=== PATIENT | male | born 1955 | race Caucasian/White ===

== ENCOUNTER 2020-10-21 11:07 | Emergency (ER) | payer OTHER ==
[~2020-10-21] VITALS: Ht 172.7 cm; Wt 65.3 kg
[2020-10-21 11:11] VITALS: BP 210/127
--- NOTE | 2020-10-21 11:40 | NUR ---
PATIENT PRESENTS TO ED WITH RESULT OF HIGH POTASSIUM LEVEL OF 6.2 . PT STATES FEELING TENSE . DENIES N/V/D; SKIN IS PINK/WARM/DRY; AAOX4 WITH EVEN AND STEADY GAIT; LUNGS CLEAR BL; HR EVEN AND REGULAR; PT DENIES ANY FEVER, CP, SOB, OR COUGH AT THIS TIME; PATIENT STATES PAIN OF 0/10 AT THIS TIME; VSS; PATIENT POSITIONED FOR COMFORT; HOB ELEVATED; BEDRAILS UP X2; BED DOWN. ER MD MADE AWARE OF PT STATUS. PMH: HTN, DM RX HYDROCHLOROTHIAZIDE, ATORVASTATIN, ATENOLOL, ASA, VASOTECH NKA
--- NOTE | 2020-10-21 11:49 | NUR ---
DR SR AT BEDSIDE EXAMINING PATIENT
[2020-10-21 11:58] LABS: ANION GAP 9.6 (8-16); CARBON DIOXIDE 27.4 mmol/L (21-32); CREATININE 0.9 mg/dL (0.6-1.3)
[2020-10-21] MEDS ORDERED: NACL 0.9% 1,000 ML IV ONE (12:25)
[2020-10-21] MEDS ORDERED: SODIUM ZIRCONIUM CYCLOSILICATE 10 GM POWD.PACK PO ONE (12:25)
--- NOTE | 2020-10-21 12:40 | NUR ---
IV INSERTED, PT TOLERATED WELL, WILL CONTINUE TO MONITOR.
[2020-10-21 13:15] LABS: BASOPHILS # (AUTO) 0.1 K/uL (0.00-0.22); BASOPHILS % (AUTO) 1.3 % (0.0-2.0); EOSINOPHILS # (AUTO) 0.3 K/uL (0-0.4); EOSINOPHILS % (AUTO) 2.6 % (0.0-4.0); HEMATOCRIT 38.5 % (36-52); HEMOGLOBIN 13.1 g/dL (12.0-18.0); LYMPHOCYTES # (AUTO) 1.6 K/uL (2.0-11.5); LYMPHOCYTES % (AUTO) 15.8 % (20.5-51.1); MEAN CORPUSCULAR HEMOGLOBIN 30 pg (27-31); MEAN CORPUSCULAR HGB CONC 34 g/dL (33-37); MEAN CORPUSCULAR VOLUME 89.3 fL (80-94); MONOCYTES # (AUTO) 0.8 K/uL (0.8-1.0); MONOCYTES % (AUTO) 8.2 % (1.7-9.3); NEUTROPHILS # (AUTO) 7.2 K/uL (1.8-7.7); NEUTROPHILS % (AUTO) 72.1 % (42.2-75.2); PLATELET COUNT (AUTO) 354 K/uL (140-450); RED BLOOD CELL COUNT(AUTO) 4.31 MIL/uL (4.20-6.10); RED CELL DISTRIBUTION WIDTH 13.4 % (11.6-13.7)
[2020-10-21] MEDS ORDERED: HYDR12.51 PO (13:48)
[2020-10-21] MEDS ORDERED: ATOR40TA PO (13:48)
[2020-10-21] MEDS ORDERED: ATEN25TA7 PO (13:48)
[2020-10-21] MEDS ORDERED: ENAL5TAB48 PO (13:48)
[2020-10-21] MEDS ORDERED: ASPI-1822 PO (13:48)
--- NOTE | 2020-10-21 14:36 | NUR ---
PT EATING, TOLERATED WELL, WILL CONTINUE TO MONTIOR.
--- NOTE | 2020-10-21 17:12 | NUR ---
REPORT GIVEN TO [facility] SPOKE TO JOSE FRANKLIN @[phone].
--- NOTE | 2020-10-21 17:55 | NUR ---
[facility] AT BEDSIDE FOR TRANSFER OF PATIENT
[2020-10-21 18:00] VITALS: BP 185/65
--- NOTE | 2020-10-21 18:02 | NUR ---
PT PICKED UP BY [facility], TRANSFERRED TO [facility], PT AWAKE ALERT ABLE TO LET NEEDS KNOW, ON ROOM AIR, NO SOB NOTED, IV TO R HAND 20G INTACT. STABLE AT THIS MOMENT.
== END 2020-10-21 18:02 | disposition short-term general hospital (02) ==
LOC: MED 11:07
DX: E87.5 Hyperkalemia (principal); I11.9 Hypertensive heart disease without heart failure; E11.9 Type 2 diabetes mellitus without complications; Z79.899 Other long term (current) drug therapy; Z20.822 Contact with and (suspected) exposure to COVID-19
CPT/HCPCS: 36415; 80048; 84484; 85025; 87426; 93005; 96360; 99284; J7030

== ENCOUNTER 2020-11-03 14:27 | Emergency (ER) | payer OTHER ==
[~2020-11-03] VITALS: Ht 156.2 cm; Wt 57.3 kg
[~2020-11-03 14:27] MED LIST: ASPI-1822 PO; ATEN25TA7 PO; ATOR40TA PO; ENAL5TAB48 PO; HYDR12.51 PO
[2020-11-03 14:39] VITALS: BP 151/79
--- NOTE | 2020-11-03 14:43 | NUR ---
PT AMBULATED TO ER BED 9 WITH A STEADY GAIT.
--- NOTE | 2020-11-03 14:46 | NUR ---
Dr. Calderon at pt bedside for further evaluation.
--- NOTE | 2020-11-03 14:55 | NUR ---
65 Y/O MALE REFERRED FROM CLINIC FOR ABNORMAL LABS. PT STATES HE WAS ADMITTED HERE [id number] AGO FOR HYPERKALEMIA. PT TRANSFERED TO [facility] AND TOLD BY A MD THERE TO STOP TAKING ENALIPRIL BECAUSE IT WAS INCREASING HIS k+ LEVELS. PT STATES HE IS CONFUSED BY WHAT TO DO WITH RX ORDERS. PMH:HTN, DM NKA
[2020-11-03 15:23] LABS: BASOPHILS # (AUTO) 0.1 K/uL (0.00-0.22); BASOPHILS % (AUTO) 0.7 % (0.0-2.0); EOSINOPHILS # (AUTO) 0.2 K/uL (0-0.4); EOSINOPHILS % (AUTO) 2.2 % (0.0-4.0); HEMATOCRIT 38.4 % (36-52); HEMOGLOBIN 12.9 g/dL (12.0-18.0); LYMPHOCYTES # (AUTO) 1.7 K/uL (2.0-11.5); LYMPHOCYTES % (AUTO) 15.4 % (20.5-51.1); MEAN CORPUSCULAR HEMOGLOBIN 30 pg (27-31); MEAN CORPUSCULAR HGB CONC 34 g/dL (33-37); MEAN CORPUSCULAR VOLUME 90.2 fL (80-94); MONOCYTES % (AUTO) 9.4 % (1.7-9.3); NEUTROPHILS # (AUTO) 7.7 K/uL (1.8-7.7); NEUTROPHILS % (AUTO) 72.3 % (42.2-75.2); PLATELET COUNT (AUTO) 474 K/uL (140-450); RED BLOOD CELL COUNT(AUTO) 4.25 MIL/uL (4.20-6.10); WHITE BLOOD COUNT (AUTO) 10.7 K/uL (4.8-10.8)
[2020-11-03] MEDS ORDERED: NACL 0.9% 1,000 ML IV ONE (15:35)
[2020-11-03 15:36] LABS: ALBUMIN 3.7 g/dL (3.4-5.0); ANION GAP 14.1 (8-16); CREATININE 1.3 mg/dL (0.6-1.3); POTASSIUM 5.1 mmol/L (3.5-5.1); TOTAL BILIRUBIN 0.5 mg/dL (0.0-1.0)
[2020-11-03 17:08] LABS: APPEARANCE,URINE CLEAR (CLEAR); BILIRUBIN,URINE NEGATIVE (NEGATIVE); BLOOD, URINE 1+ (NEGATIVE); COLOR,URINE YELLOW (YELLOW); LEUKOCYTE ESTERASE ,URINE NEGATIVE (NEGATIVE); NITRITE, URINE NEGATIVE (NEGATIVE); PH,URINE 5.5 (5.0-9.0); UGLUCOSE NEGATIVE (NEGATIVE)
[2020-11-03 17:14] LABS: WBC,URINE 0-5 /HPF (0-5)
[2020-11-03 17:41] VITALS: BP 151/79
--- NOTE | 2020-11-03 17:41 | NUR ---
Patient discharged with v/s stable. Written and verbal after care instructions given and explained. Patient verbalized understanding. Ambulatory with steady gait. All questions addressed prior to discharge. Advised to follow up with PMD.
--- NOTE | 2020-11-03 17:43 | NUR ---
PT REQUESTED TO SEE ERMD FOR FEW QUESTIONS. ERMD MADE AWARE.
== END 2020-11-03 17:41 | disposition home or self-care (01) ==
LOC: MED 14:27
DX: R79.9 Abnormal finding of blood chemistry, unspecified (principal); D47.3 Essential (hemorrhagic) thrombocythemia; I10 Essential (primary) hypertension; E78.5 Hyperlipidemia, unspecified
CPT/HCPCS: 36415; 80053; 81001; 82550; 85025; 87086; 93005; 99284